=== PATIENT | female | born 1960 ===

== ENCOUNTER 2018-06-15 07:53 | Outpatient (CLI) | payer OTHER ==
[~2018-06-15] VITALS: Ht 160 cm; Wt 98.0 kg
[2018-06-15] MEDS ORDERED: CLARITIN10 MG PO (09:56)
[2018-06-15] MEDS ORDERED: FLONASE16 GM NASAL (09:56)
[2018-06-15] MEDS ORDERED: ZANTAC300 MG PO (09:56)
== END 2018-06-15 08:10 | disposition home or self-care (01) ==
LOC: OFIC 805 07:53
DX: J31.0 Chronic rhinitis (principal); J34.2 Deviated nasal septum; R05 Cough; J37.0 Chronic laryngitis; E66.8 Other obesity; G47.33 Obstructive sleep apnea (adult) (pediatric); H91.8X1 Other specified hearing loss, right ear

== ENCOUNTER 2018-09-07 07:58 | Outpatient (CLI) | payer OTHER ==
[~2018-09-07] VITALS: Ht 152.4 cm; Wt 95.3 kg
[~2018-09-07 07:58] MED LIST: CLARITIN10 MG PO; FLONASE16 GM NASAL; ZANTAC300 MG PO
[2018-09-07] MEDS ORDERED: FLONASE16 GM NASAL (08:42)
[2018-09-07] MEDS ORDERED: CLARITIN10 MG PO (08:42)
== END 2018-09-07 08:10 | disposition home or self-care (01) ==
LOC: OFIC 805 07:58
DX: J31.0 Chronic rhinitis (principal); H90.3 Sensorineural hearing loss, bilateral; H93.13 Tinnitus, bilateral; G47.33 Obstructive sleep apnea (adult) (pediatric)

== ENCOUNTER 2018-09-22 08:41 | Outpatient (CLI) | payer OTHER | END 2018-09-22 08:50 | disposition home or self-care (01) | LOC: RAD 08:41 | DX: M54.5 Low back pain (principal) ==